=== PATIENT | female | born 1980 | race American Indian/Alaskan Native ===

== ENCOUNTER 2018-08-03 10:16 | Emergency (ER) | payer MEDICAID ==
[2018-08-03 10:29] VITALS: BP 183/95
[2018-08-03] MEDS ORDERED: ZOFRAN IV ONE (11:04)
[2018-08-03] MEDS ORDERED: MORPHINE IV ONE (11:04)
--- NOTE | 2018-08-03 11:08 | Emergency Department Report ---
ED Female HPI - General Chief complaint: Vaginal Bleeding Stated complaint: 2 MONTHS /CRAMPING Time Seen by Provider: 08/03/18 11:00 Source: patient Mode of arrival: Ambulatory Limitations: No Limitations - History of Present Illness Initial comments: Patient is 38 years old female 4 para 2, with 2 miscarriages. Patient presented to the ER complaining of pelvic pain and vaginal discharge starting this morning. Pain is crampy in nature. Patient denied any vaginal bleeding. Patient stated the last menstrual period was 2 months ago. Patient denied any dizziness, shortness of breath or chest pain. MD Complaint: vaginal discharge, pelvic pain -: This morning Location: suprapubic, LLQ Radiation: suprapubic Severity: moderate Quality: cramping Consistency: intermittent Worsens with: none - Related Data Allergies Allergy/AdvReac Type Severity Reaction Status Date / Time codeine Allergy Swelling Verified 08/03/18 10:18 ED Review of Systems ROS: Stated complaint: 2 MONTHS /CRAMPING Other details as noted in HPI Comment: All other systems reviewed and negative Constitutional: denies: chills, fever Respiratory: denies: cough, orthopnea, shortness of breath, SOB with exertion, SOB at rest, wheezing Cardiovascular: denies: chest pain, palpitations Gastrointestinal: abdominal pain, nausea. denies: vomiting, diarrhea, constipation, hematemesis, melena, hematochezia Musculoskeletal: denies: back pain Neurological: denies: headache, weakness, numbness, paresthesias, confusion ED Past Medical Hx - Social History Smoking Status: Never Smoker Substance Use Type: None ED Physical Exam - General Limitations: No Limitations General appearance: alert, in no apparent distress - Head Head exam: Present: atraumatic, normocephalic, normal inspection - Eye Eye exam: Present: normal appearance, PERRL - ENT ENT exam: Present: normal exam, normal orophraynx, mucous membranes moist - Neck Neck exam: Present: normal inspection, full ROM. Absent: tenderness, meningismus, lymphadenopathy, thyromegaly - Respiratory Respiratory exam: Present: normal lung sounds bilaterally. Absent: respiratory distress, chest wall tenderness - Cardiovascular Cardiovascular Exam: Present: regular rate, normal rhythm, normal heart sounds - GI/Abdominal GI/Abdominal exam: Present: soft, normal bowel sounds. Absent: distended, tenderness, guarding, rebound, rigid, organomegaly, mass, bruit, pulsatile mass, hernia - Extremities Exam Extremities exam: Present: normal inspection, full ROM, normal capillary refill. Absent: tenderness, pedal edema, calf tenderness - Back Exam Back exam: Present: normal inspection, full ROM. Absent: tenderness, CVA tenderness (R), CVA tenderness (L), muscle spasm, paraspinal tenderness, vertebral tenderness - Neurological Exam Neurological exam: Present: alert, oriented X3, CN II-XII intact, normal gait, reflexes normal - Skin Skin exam: Present: warm, intact, normal color ED Course Vital Signs 08/03/18 08/03/18 10:28 11:32 Temperature 98.3 F Pulse Rate 99 H Respiratory 20 18 Rate Blood Pressure 183/95 O2 Sat by Pulse 99 Oximetry ED Medical Decision Making - Lab Data Result diagrams: 08/03/18 11:08 08/03/18 11:08 - Radiology Data Radiology results: report reviewed Referring Physician: XAVI BARRETT Patient Name: ESTEBAN HAMPTON Date of : 1980 Sex: Female Report Date: 2018-08-03 Report Status: Finalized Findings [facility] [address] [place] [address] Ultrasound Report Signed Patient: ESTEBAN HAMPTON MR#: [id number] : 1980 Acct:[id number] Age/Sex: 38 / F ADM Date: 08/03/18 Loc: ED Attending Dr: Ordering Physician: XAVI BARRETT Date of Service: 08/03/18 Procedure(s): US OB transvaginal Accession Number(s): [id number] cc: XAVI BARRETT FINAL REPORT EXAM: US OB TRANSVAGINAL HISTORY: ABDOMINAL PAIN TECHNIQUE: Grayscale and color doppler ultrasound imaging of the pelvis was p erformed transabdominally and transvaginally. PRIORS: None. FINDINGS: Uterus: The uterus is diffusely heterogeneous with multiple fibroids. The uterus measures 16.9 x 5.8 x 9.9 centimeters. One of the larger fibroids measures 4.5 x 3.8 centimeters. An intrauterine gestational sac, yolk sac and embryonic pole were seen. heart rate is detected at 111 beats per minute. [place]-rump length is 13 millimeters corresponding with an estimated gestational age of 7 weeks and 4 days with an PATRICA of 03/18/2018. No evidence of subchorionic hemorrhage. Ovaries: The right ovary was not seen. The left ovary measures 2.4 x 3.2 x 6.5 centimeters. No ovarian cysts or masses. Free fluid: None. IMPRESSION: 1. Live intrauterine measuring at 7 weeks and 4 days gestational age with an PATRICA of 03/18/2018. 2. Multiple uterine fibroids. 3. Normal left ovary. Right ovary not seen. Transcribed By: MG Dictated By: RAO HUTCHISON MD Electronically Authenticated By: RAO HUTCHISON MD Signed Date/Time: 08/03/18 1602 DD/ 1600 TD/TT: 08/03/18 1600 - Medical Decision Making Patient stated that she is having much better. No vaginal bleeding. Critical care attestation.: If time is entered above; I have spent that time in minutes in the direct care of this critically ill patient, excluding procedure time. ED Disposition Clinical Impression: Abdominal pain, Fibroid, Disposition: DC-01 TO HOME OR SELFCARE Is pt being admited?: No Condition: Stable Instructions: (ED), Uterine Fibroids (ED), Abdominal Pain in Pregn lance (ED) Referrals: NELSY SHELDON [Staff Physician] - 3-5 Days
[2018-08-03 11:32] LABS: Basophils % (Auto) 0.6 % (0.0-1.8); Eosinophils # (Auto) 0.1 K/mm3 (0.0-0.4); Eosinophils % (Auto) 1.7 % (0.0-4.3); Hematocrit 32.1 % (30.3-42.9); Hemoglobin 9.8 gm/dl (10.1-14.3); Lymphocytes # (Auto) 0.8 K/mm3 (1.2-5.4); Lymphocytes % (Auto) 21.1 % (13.4-35.0); Mean Corpuscular HGB Conc 30 % (30-34); Mean Corpuscular Volume 66 fl (79-97); Monocytes # (Auto) 0.3 K/mm3 (0.0-0.8); Monocytes % (Auto) 6.9 % (0.0-7.3); Platelet Count 195 K/mm3 (140-440); Red Blood Count 4.89 M/mm3 (3.65-5.03); Red Cell Distribution Width 19.6 % (13.2-15.2)
[2018-08-03 11:35] LABS: Bilirubin,Urine NEG (Negative); Blood,Urine NEG (Negative); Color,Urine Yellow (Yellow); Mucus,Urine FEW /HPF; Urobilinogen,Urine < 2.0 mg/dL (<2.0)
[2018-08-03 11:47] LABS: Alanine Aminotransferase 12 units/L (7-56); Albumin 3.5 g/dL (3.9-5); BUN/Creatinine Ratio 11; Blood Urea Nitrogen 8 mg/dL (7-17); Calcium 9.2 mg/dL (8.4-10.2); Hemolysis Index 4
[2018-08-03] MEDS ORDERED: HumuLIN R SUB-Q ONE (15:50)
--- NOTE | 2018-08-03 16:01 | Ultrasound Report ---
FINAL REPORT EXAM: US OB < = 14 WEEKS FETUS HISTORY: abdominal pain, TECHNIQUE: Grayscale and color doppler ultrasound imaging of the pelvis was performed transabdomina lly and transvaginally. PRIORS: None. FINDINGS: Uterus: The uterus is diffusely heterogeneous with multiple fibroids. The uterus measures 16.9 x 5.8 x 9.9 centimeters. One of the larger fibroids measures 4.5 x 3.8 centimeters. An intrauterine gestati onal sac, yolk sac and embryonic pole were seen. heart rate is detected at 111 beats per minute . [place]-rump length is 13 millimeters corresponding with an estimated gestational age of 7 weeks and 4 days with an PATRICA of 03/18/2018. No evidence of subchorionic hemorrhage. Ovaries: The right ovary was not seen. The left ovary measures 2.4 x 3.2 x 6.5 centimeters. No ovaria n cysts or masses. Free fluid: None. IMPRESSION: 1. Live intrauterine measuring at 7 weeks and 4 days gestational age with an PATRICA of 018. 2. Multiple uterine fibroids. 3. Normal left ovary. Right ovary not seen.
--- NOTE | 2018-08-03 16:02 | Ultrasound Report ---
FINAL REPORT EXAM: US OB TRANSVAGINAL HISTORY: ABDOMINAL PAIN TECHNIQUE: Grayscale and color doppler ultrasound imaging of the pelvis was performed transabdominal ly and transvaginally. PRIORS: None. FINDINGS: Uterus: The uterus is diffusely heterogeneous with multiple fibroids. The uterus measures 16.9 x 5.8 x 9.9 centimeters. One of the larger fibroids measures 4.5 x 3.8 centimeters. An intrauterine gestati onal sac, yolk sac and embryonic pole were seen. heart rate is detected at 111 beats per minute . [place]-rump length is 13 millimeters corresponding with an estimated gestational age of 7 weeks and 4 days with an PATRICA of 03/18/2018. No evidence of subchorionic hemorrhage. Ovaries: The right ovary was not seen. The left ovary measures 2.4 x 3.2 x 6.5 centimeters. No ovaria n cysts or masses. Free fluid: None. IMPRESSION: 1. Live intrauterine measuring at 7 weeks and 4 days gestational age with an PATRICA of 018. 2. Multiple uterine fibroids. 3. Normal left ovary. Right ovary not seen.
[2018-08-03 22:50] LABS: HCG Qualitative,Urine Positive (Negative)
== END 2018-08-03 17:09 | disposition home or self-care (01) ==
LOC: ED 10:16
DX: O34.11 Maternal care for benign tumor of corpus uteri, first trimester (principal); Z3A.01 Less than 8 weeks gestation of pregnancy; Z88.5 Allergy status to narcotic agent
CPT/HCPCS: 36415; 76801; 76817; 80053; 81001; 81025; 82962; 84702; 85025; 86900; 86901; 96372; 96374; 96375; 99284; J2270; J2405; J1815

== ENCOUNTER 2018-10-12 15:05 | Inpatient (IN) | payer MEDICAID ==
--- NOTE | 2018-10-12 15:22 | Emergency Department Report ---
Chief Complaint: High BP Stated Complaint: 17 WEEKS /ELEVATED BP Time Seen by Provider: 10/12/18 15:19 - HPI History of Present Illness: Pt is currently 17 weeks OB: Dr. Shasta Ireland pt has a hx of HTN before was taking lisinopril once she got she was placed on labetalol states she received a prescription today for procardia she has a mild CAGLE no blurred vision, no numbness, weakness, no abd pain, no vag bleeding /P:2/A:2 pmhx of DM pt is on insulin - Exam Vital Signs: Vital Signs 10/12/18 15:11 Temperature 98.3 F Pulse Rate 82 Respiratory 18 Rate Blood Pressure 183/97 O2 Sat by Pulse 97 Oximetry MSE screening note: Focused history performed. Due to findings the following was ordered: labs, UA ED Disposition for MSE Condition: Stable
[2018-10-12 15:56] LABS: Basophils % (Auto) 0.5 % (0.0-1.8); Eosinophils # (Auto) 0.1 K/mm3 (0.0-0.4); Hematocrit 35.6 % (30.3-42.9); Hemoglobin 11.3 gm/dl (10.1-14.3); Lymphocytes # (Auto) 0.8 K/mm3 (1.2-5.4); Lymphocytes % (Auto) 17.5 % (13.4-35.0); Mean Corpuscular HGB Conc 32 % (30-34); Mean Corpuscular Volume 73 fl (79-97); Monocytes # (Auto) 0.4 K/mm3 (0.0-0.8); Monocytes % (Auto) 8.1 % (0.0-7.3); Platelet Count 195 K/mm3 (140-440); Red Blood Count 4.84 M/mm3 (3.65-5.03)
[2018-10-12 15:57] LABS: Bilirubin,Urine NEG (Negative); Blood,Urine NEG (Negative); Color,Urine Yellow (Yellow); Hyaline Casts,Urine 1 /LPF; Mucus,Urine FEW /HPF; Red Cell Distribution Width 22.2 % (13.2-15.2); Urobilinogen,Urine < 2.0 mg/dL (<2.0)
[2018-10-12 16:01] LABS: Protein,Urine >500 mg/dL (Negative)
[2018-10-12 16:15] LABS: Alanine Aminotransferase 29 units/L (7-56); Albumin 2.9 g/dL (3.9-5); BUN/Creatinine Ratio 10; Blood Urea Nitrogen 8 mg/dL (7-17); Hemolysis Index 1
[2018-10-12] MEDS ORDERED: NORMODYNE IV ONE ×2 (16:20→18:21)
--- NOTE | 2018-10-12 16:24 | Emergency Department Report ---
ED General Adult HPI - General Chief complaint: High BP Stated complaint: 17 WEEKS /ELEVATED BP Time Seen by Provider: 10/12/18 15:19 Source: patient Mode of arrival: Ambulatory Limitations: No Limitations - History of Present Illness Initial comments: Patient is 38 years old female 5 para 2 with 2 miscarriages. Patient is 17 weeks . Patient was seen today by our OB specialist and change from atenolol to Procardia. Patient sent here for blood pressure management. Patient found to have a blood pressure of 133/97. Patient complaining of mild headache but denying any weakness, numbness or tingling sensation. No blurred v ision. No fever or chills. Patient also denied any chest pain or shortness of breath. - Related Data Allergies Allergy/AdvReac Type Severity Reaction Status Date / Time codeine Allergy Swelling Verified 10/12/18 15:06 ED Review of Systems ROS: Stated complaint: 17 WEEKS /ELEVATED BP Other details as noted in HPI Comment: All other systems reviewed and negative Constitutional: denies: chills, fever Respiratory: denies: cough, orthopnea, shortness of breath, SOB with exertion, SOB at rest, wheezing Cardiovascular: denies: chest pain, palpitations, dyspnea on exertion Gastrointestinal: denies: abdominal pain, nausea, vomiting, diarrhea, constipation, hematemesis, melena, hematochezia Musculoskeletal: denies: back pain Neurological: headache. denies: weakness, numbness, paresthesias, confusion, abnormal gait ED Past Medical Hx - Past Medical History Hx Hypertension: Yes Hx Diabetes: Yes - Surgical History Hx Cholecystectomy: Yes Additional Surgical History: c/s, D&C - Social History Smoking Status: Never Smoker Substance Use Type: None ED Physical Exam - General Limitations: No Limitations General appearance: alert, in no apparent distress - Head Head exam: Present: atraumatic, normocephalic, normal inspection - Eye Eye exam: Present: normal appearance, PERRL - ENT ENT exam: Present: normal exam, normal orophraynx, mucous membranes moist - Neck Neck exam: Present: normal inspection, full ROM. Absent: tenderness, meningismus, lymphadenopathy, thyromegaly - Respiratory Respiratory exam: Present: normal lung sounds bilaterally - Cardiovascular Cardiovascular Exam: Present: regular rate, normal rhythm, normal heart sounds - GI/Abdominal GI/Abdominal exam: Present: soft, normal bowel sounds. Absent: distended, tenderness, guarding, rebound, rigid, organomegaly, mass, bruit, pulsatile mass, hernia - Extremities Exam Extremities exam: Present: normal inspection, full ROM, normal capillary refill - Back Exam Back exam: Present: normal inspection, full ROM. Absent: tenderness, CVA tenderness (R), CVA tenderness (L), muscle spasm, paraspinal tenderness, vertebral tenderness - Neurological Exam Neurological exam: Present: alert, oriented X3, CN II-XII intact, normal gait, reflexes normal - Skin Skin exam: Present: warm, intact, normal color ED Course Vital Signs 10/12/18 10/12/18 10/12/18 15:11 16:05 16:41 Temperature 98.3 F 98 F Pulse Rate 82 78 78 Respiratory 18 16 Rate Blood Pressure 183/97 170/82 Blood Pressure 175/86 [Left] O2 Sat by Pulse 97 100 Oximetry 10/12/18 10/12/18 10/12/18 17:01 18:21 18:41 Temperature 98.2 F Pulse Rate 78 79 80 Respiratory 16 16 Rate Blood Pressure 161/83 Blood Pressure 150/77 163/75 [Left] O2 Sat by Pulse 100 100 Oximetry 10/12/18 10/12/18 10/12/18 19:55 20:23 20:52 Temperature Pulse Rate 85 79 88 Respiratory 17 13 Rate Blood Pressure 181/75 Blood Pressure 157/68 136/58 [Left] O2 Sat by Pulse 97 99 Oximetry 10/12/18 22:01 Temperature Pulse Rate 86 Respiratory 16 Rate Blood Pressure Blood Pressure 171/80 [Left] O2 Sat by Pulse 98 Oximetry ED Medical Decision Making - Lab Data Result diagrams: 10/12/18 15:37 10/12/18 15:37 - Medical Decision Making Patient is 38 years old female 5 para 2 with 2 miscarriages. Patient is 17 weeks . Patient was seen today by our OB specialist and change from atenolol to Procardia. Patient sent here for blood pressure management. Patient found to have a blood pressure of 133/97. Patient complaining of mild headache but denying any weakness, numbness or tingling sensation. No blurred vision. No fever or chills. Patient also denied any chest pain or shortness of breath. Patient received labetalol 20 mg IV. I discussed the patient is Dr. Christianson, she advised that patient can be discharged home and to follow up with her OB doctor in the next 2-3 days. Unfortunately patient blood pressure remained high after labetalol and hydralazine. I discussed the patient with Dr. Christianson again and she agreed to admit the patient to mother and baby for management of the blood pressure. Critical care attestation.: If time is entered above; I have spent that time in minutes in the direct care of this critically ill patient, excluding procedure time. ED Disposition Clinical Impression: Malignant hypertension, Disposition: DC-09 OP ADMIT IP TO THIS HOSP Is pt being admited?: Yes Condition: Stable Instructions: Hypertension (ED) Referrals: ANICETO MERCHANT MD [Staff Physician] - 24 Hours
[2018-10-12 17:26] LABS: INR 1.06 (0.87-1.13); Partial Thromboplastin Time 25.6 Sec. (24.2-36.6)
[2018-10-12] MEDS ORDERED: APRESOLINE IV ONE ×2 (20:09→22:03)
[2018-10-12] MEDS ORDERED: COLACE PO PRN (23:17)
[2018-10-13] MEDS: ALDOMET PO SCH ×3 (00:59→22:31)
[2018-10-13] MEDS: TYLENOL PO PRN ×4 (03:46→22:24)
[2018-10-13] MEDS ORDERED: D50W (25GM) Syringe IV PRN (08:00)
[2018-10-13] MEDS: LACTATED RINGERS 1,000 ML IV SCH ×2 (08:12→17:28)
--- NOTE | 2018-10-13 08:29 | History and Physical Report ---
History of Present Illness Date of examination: 10/13/18 Date of admission: 10/12/18 22:39 Chief complaint: sent from [facility] for blood pressure control History of present illness: The patient is a 38-year-old female 5 para 1122 PATRICA 03/18/2019 at 17w5d who presents from maternal- medicine clinic for blood pressure control. She has had care from your [facility] since 11 weeks with comanagement by maternal medicine complicated by advanced maternal age, insulin-dependent diabetes mellitus, chronic hypertension, morbid obesity, uterine fibroids, genital herpes, previous section, and anemia. She does not desire future fertility. Past History Past Medical History: hypertension, diabetes, other (obesity, herniated disc) Past Surgical History: cholecystectomy, section, D&C [employer] History: herpes Family/Genetic History: diabetes, heart disease, hypertension Social history: - Obstetrical History Expected Date of Delivery: 03/18/19 Actual Gestation: 17 Week(s) 6 Day(s) : 5 Para: 2 Hx # Term Pregnancies: 1 Number of Pregnancies: 1 Spontaneous Abortions: 2 Induced : 0 Number of Living Children: 2 Medications and Allergies Allergies Allergy/AdvReac Type Severity Reaction Status Date / Time codeine Allergy Swelling Verified 10/12/18 15:06 Active Meds: Active Medications Acetaminophen (Tylenol) 650 mg PO Q4H PRN PRN Reason: Pain MILD(1-3)/Fever >100.5/CAGLE Last Admin: 10/13/18 03:46 Dose: 650 mg Documented by: Dextrose (D50w (25gm) Syringe) 50 ml IV PRN PRN PRN Reason: Hypoglycemia Docusate Sodium (Colace) 100 mg PO Q12H PRN PRN Reason: Constipation Lactated Ringer's (Lactated Ringers) 1,000 mls @ 125 mls/hr IV DIRECT QIAN Last Admin: 10/13/18 08:12 Dose: 125 mls/hr Documented by: Methyldopa (Aldomet) 500 mg PO Q12HR QIAN Last Admin: 10/13/18 00:59 Dose: 500 mg Documented by: Multivitamins/Iron/Calcium ( Vitamin) 1 each PO QDAY QIAN Nifedipine (Procardia Xl) 60 mg PO QDAY QIAN Review of Systems All systems: negative Neurological: headaches - Vital Signs Vital signs: Vital Signs Temp Pulse Resp BP Pulse Ox 98.3 F 82 18 183/97 97 10/12/18 15:11 10/12/18 15:11 10/12/18 15:11 10/12/18 15:11 10/12/18 15:11 Temp Pulse Resp BP Pulse Ox 97.8 F 81 18 147/69 98 10/13/18 05:30 10/13/18 05:30 10/13/18 05:30 10/13/18 05:30 10/13/18 05:30 - Physical Exam Breasts: Positive: deferred Cardiovascular: Regular rate Lungs: Positive: Clear to auscultation Abdomen: Positive: soft (obese) Uterus: Positive: enlarged Results Result Diagrams: 10/12/18 15:37 10/12/18 15:37 Abnormal lab results 10/12/18 10/12/18 10/12/18 Range/Units 15:37 15:37 15:37 MCV 73 L (79-97) fl MCH 23 L (28-32) pg RDW 22.2 H (13.2-15.2) % [place] % (Auto) 8.1 H (0.0-7.3) % Lymph # 0.8 L (1.2-5.4) K/mm3 Seg Neutrophils % 71.9 H (40.0-70.0) % POC Glucose (70-105) Lactate Dehydrogenase 223 H (91-180) units/L Albumin 2.9 L (3.9-5) g/dL 10/13/18 Range/Units 08:21 MCV (79-97) fl MCH (28-32) pg RDW (13.2-15.2) % [place] % (Auto) (0.0-7.3) % Lymph # (1.2-5.4) K/mm3 Seg Neutrophils % (40.0-70.0) % POC Glucose 115 H (70-105) Lactate Dehydrogenase (91-180) units/L Albumin (3.9-5) g/dL All other labs normal. Assessment and Plan A: IUP at 17 weeks 5 days Poorly controlled chronic hypertension Insulin-dependent diabetes mellitus Morbid obesity Advanced maternal age Genital herpes Previous 1 P: Admit to antepartum service for optimization of blood pressure regimen. heart tones daily
[2018-10-13] MEDS: PRENATAL VITAMIN PO SCH (10:21)
[2018-10-13] MEDS: PROCARDIA XL PO SCH (10:21)
--- NOTE | 2018-10-13 19:41 | Ultrasound Report ---
PROCEDURE: US OB >= 14 WEEKS FETUS TECHNIQUE: Real-time transabdominal sonography of the uterus, placenta, amniotic fluid, adnexa, and fetus was performed with image documentation. Measurements were obtained to determine age/size. M-mode Doppler was used to document heartbeat. ADDITIONAL GESTATION: None HISTORY: viability COMPARISONS: None. FINDINGS: MATERNAL: Uterus and cervix: Transabdominal measurement of the cervix is 7 cm. Adnexa and ovaries: Uterine fibroid is noted in the right uterus, which measures up to 6.4 cm. IUP: Single live intrauterine gestation. Position: Breech Placental position: Anterior and grade 0, without previa . Deepest vertical pocket of amniotic fluid measures 3.5 cm. Cardiac activity: Regular rhythm at 120 bpm. ANATOMY: Not performed BIOMETRY: Biparietal diameter: 3.8 cm, 17 weeks 4 days. Head circumference: 14.5 cm, 17 weeks 5 days. Abdominal circumference: 11.6 cm, 17 weeks 2 days. Femur length: 2.6 cm, 17 weeks 6 days. Ratio biometry: Normal . Estimated Weight: 200 grams +/- 30 grams. 7 ounces +/- 1.ounces. 35th. percentile. Mean Gestational Age (composite criteria) based on today's measurements: 17 weeks 4 days. Estimated Due Date:03/19/2019. IMPRESSION: Single live intrauterine gestation at 17 weeks 4 days. Estimated due date: 03/19/2019. Uterine fibroid is noted. This document is electronically signed by Giana Yo MD., October 13 2018 07:39:25 PM ET
[2018-10-14] MEDS: LACTATED RINGERS 1,000 ML IV SCH (02:50)
[2018-10-14] MEDS: TYLENOL PO PRN ×2 (04:57→08:59)
[2018-10-14] MEDS ORDERED: HumuLIN R SUB-Q SCH ×2 (08:00→17:00)
--- NOTE | 2018-10-14 10:12 | Progress Note ---
Assessment and Plan - Patient Problems (1) Malignant hypertension Current Visit: Yes Status: Acute Plan to address problem: discharge home (2) Current Visit: Yes Status: Acute Subjective - Subjective Date of service: 10/14/18 Interval history: Patient having significant improvement in blood pressures. Having intermittent headaches Patient reports: no new complaints, no vaginal bleeding Objective - Vital Signs Vital Signs: Vital Signs - 12hr 10/13/18 10/13/18 10/13/18 22:20 22:24 22:29 Temperature 98.0 F Pulse Rate 83 Pulse Rate [ 83 Right Radial] Respiratory 24 24 24 Rate Blood Pressure 135/68 Blood Pressure [Right] O2 Sat by Pulse 97 Oximetry 10/13/18 10/14/18 10/14/18 22:31 04:42 04:57 Temperature 98.6 F Pulse Rate 83 82 Pulse Rate [ Right Radial] Respiratory 18 22 Rate Blood Pressure 135/68 137/63 Blood Pressure [Right] O2 Sat by Pulse 98 Oximetry 10/14/18 09:24 Temperature 99.6 F Pulse Rate 87 Pulse Rate [ Right Radial] Respiratory 20 Rate Blood Pressure Blood Pressure 135/70 [Right] O2 Sat by Pulse 96 Oximetry - Labs Labs: Abnormal Labs 10/12/18 10/12/18 10/12/18 15:37 15:37 15:37 MCV 73 L MCH 23 L RDW 22.2 H [place] % (Auto) 8.1 H Lymph # 0.8 L Seg Neutrophils % 71.9 H POC Glucose Lactate Dehydrogenase 223 H Albumin 2.9 L 10/13/18 10/13/18 10/13/18 08:21 10:57 14:34 MCV MCH RDW [place] % (Auto) Lymph # Seg Neutrophils % POC Glucose 115 H 159 H 138 H Lactate Dehydrogenase Albumin 10/13/18 10/14/18 21:55 06:38 MCV MCH RDW [place] % (Auto) Lymph # Seg Neutrophils % POC Glucose 181 H 129 H Lactate Dehydrogenase Albumin Laboratory Results - last 24 hr 10/13/18 10/13/18 10/13/18 10:57 14:34 21:55 POC Glucose 159 H 138 H 181 H 10/14/18 06:38 POC Glucose 129 H
--- NOTE | 2018-10-14 10:14 | Discharge Summary ---
Providers - Providers Date of Admission: 10/12/18 22:39 Date of discharge: 10/14/18 Attending physician: GARIMA DURHAM Hospitalization Reason for admission: other (chronic hypertension) Discharge diagnosis: other (Chronic hypertension in ) Hospital course: Patient admitted for monitoring and treatment of elevated blood pressures. Patient was sent to ED after being seen by MFM. Had improvement in bp's with medication Condition at discharge: Good Disposition: DC-01 TO HOME OR SELFCARE - Discharge Diagnoses (1) Malignant hypertension Status: Acute (2) Status: Acute Plan - Discharge Medications Prescriptions: Methyldopa [Aldomet] 500 mg PO BID #60 tablet Butalb/Acetaminophen/Caffeine [Fioricet 50-300-40 mg CAP] 1 cap PO Q6HR PRN #30 cap PRN Reason: Headache Vit-Fe Fumar-FA [ Vitamin] 1 tab PO QDAY #30 tablet NIFEdipine XL [Procardia Xl] 60 mg PO QDAY #30 tablet - Provider Discharge Summary Diet: routine Instructions: routine Additional instructions: [] Smoking cessation referral if applicable(refer to patient education folder for contact #) [] Refer to [facility] Booklet Call your doctor immediately for: * Fever > 100.5 * Heavy vaginal bleeding ( >1 pad per hour) * Severe persistent headache * Shortness of breath * Reddened, hot, painful area to leg or breast * schedule followup in one week - Follow up plan
[2018-10-14] MEDS: ALDOMET PO SCH (10:36)
[2018-10-14] MEDS: PRENATAL VITAMIN PO SCH (10:37)
[2018-10-14] MEDS: PROCARDIA XL PO SCH (10:38)
[2018-10-14 13:14] VITALS: BP 134/75
== END 2018-10-14 13:40 | disposition home or self-care (01) | DRG 781 ==
LOC: ED 15:05 → UNDOADMOB 22:39 → OB 22:39 → INTOOBSV 22:39 → OBSVTOIN 22:39 → UNDOADMOB 10-13 16:30 → OB 10-13 16:30 → OBSVTOIN 10-13 16:30 → INTOOBSV 10-13 16:30 → OBSVTOIN 10-13 16:38 → OB 10-13 16:38
PROVIDERS: ADMIT Obstetrics & Gynecology; ATTEND Obstetrics & Gynecology
DX: O10.912 Unspecified pre-existing hypertension complicating pregnancy, second trimester (principal); E66.01 Morbid (severe) obesity due to excess calories; O24.912 Unspecified diabetes mellitus in pregnancy, second trimester; O99.212 Obesity complicating pregnancy, second trimester; O98.312 Other infections with a predominantly sexual mode of transmission complicating pregnancy, second trimester; Z3A.17 17 weeks gestation of pregnancy; Z79.4 Long term (current) use of insulin; Z90.49 Acquired absence of other specified parts of digestive tract; Z83.3 Family history of diabetes mellitus; Z82.49 Family history of ischemic heart disease and other diseases of the circulatory system; Z88.5 Allergy status to narcotic agent
CPT/HCPCS: 36415; 76805; 80053; 81001; 82962; 83615; 85025; 85610; 85730; G0378; J0360; J1815; J7120

== ENCOUNTER 2018-11-04 12:37 | Outpatient (CLI) | payer MEDICAID ==
[2018-11-04 15:34] LABS: Alanine Aminotransferase 23 units/L (7-56); Uric Acid 5.1 mg/dL (3.5-7.6)
[2018-11-04 15:37] LABS: Hematocrit 36.2 % (30.3-42.9); Hemoglobin 12.2 gm/dl (10.1-14.3); Mean Corpuscular HGB Conc 34 % (30-34); Mean Corpuscular Volume 73 fl (79-97); Platelet Count 192 K/mm3 (140-440); Red Blood Count 4.94 M/mm3 (3.65-5.03); Red Cell Distribution Width 19.5 % (13.2-15.2)
[2018-11-04 15:43] LABS: Bilirubin,Urine NEG (Negative); Blood,Urine NEG (Negative); Color,Urine Yellow (Yellow); Urobilinogen,Urine < 2.0 mg/dL (<2.0)
[2018-11-04 15:45] LABS: Protein,Urine >500 mg/dL (Negative)
--- NOTE | 2018-11-04 16:19 | Ultrasound Report ---
PROCEDURE: US OB LIMITED TECHNIQUE: Real-time limited sonographic examination was performed for evaluation of for each fetus with image documentation (1 or more fetuses). HISTORY: wellbeing FINDINGS: Real-time ultrasound of the pelvis was performed and demonstrates a live intrauterine gesta tion transverse lie with head to the maternal left. cardiac activity is present at 105 bpm. Amniotic fluid index was not measured but appears subje ctively normal. IMPRESSION: Live intrauterine gestation, in transverse lie This document is electronically signed by Viraj Liao MD., Nov 04 2018 04:17:03 PM ET
[2018-11-04 17:31] VITALS: BP 144/79
[2018-11-04] MEDS ORDERED: ALDOMET PO ONE (17:51)
== END 2018-11-04 17:56 | disposition home or self-care (01) ==
LOC: EDSTATUS 13:04 → TRG 13:06
PROVIDERS: ATTEND Obstetrics & Gynecology
DX: O47.02 False labor before 37 completed weeks of gestation, second trimester (principal); Z3A.20 20 weeks gestation of pregnancy
CPT/HCPCS: 36415; 59025; 76815; 81001; 82565; 83615; 84450; 84460; 84550; 85027